=== PATIENT | female | born 1970 | race Caucasian/White ===

== ENCOUNTER 2020-08-18 05:59 | Day surgery (SDC) | payer BC ==
[2020-08-17 11:37] VITALS: BMI 23.6
[2020-08-18] MEDS ORDERED: Fentanyl 250 MCG/5 ML VIAL ONE (06:52)
[2020-08-18] MEDS ORDERED: Midazolam HCl 2 mg/2 ml Vial ONE (07:06)
[2020-08-18] MEDS ORDERED: Meperidine HCl/PF 25 MG/ML VIAL SLOW IVP PRN (07:12)
[2020-08-18] MEDS ORDERED: Ondansetron HCl/PF 4 MG/2 ML Vial IVP PRN (07:12)
[2020-08-18] MEDS ORDERED: Promethazine HCl 25 MG/ML VIAL SLOW IVP PRN (07:12)
[2020-08-18] MEDS ORDERED: Promethazine HCl 25 MG/ML VIAL IM PRN (07:12)
[2020-08-18] MEDS ORDERED: Scopolamine 1.5 mg/72 hour Patch ONE (07:13)
[2020-08-18] MEDS ORDERED: SUGAMMADEX SODIUM 200 MG/2 ML VIAL ONE (08:44)
--- NOTE | 2020-08-18 08:47 | OP ---
DATE OF PROCEDURE: 08/18/2020 SUBSTANCE ABUSE CLINICIAN: Bryan. PROCEDURES PERFORMED: Right L5-S1 laminectomy, facetectomy, foraminotomy, and diskectomy; interbody arthrodesis; intervertebral biomechanical device; local morselized autograft; demineralized bone matrix; posterolateral arthrodesis; pedicle screw instrumentation, right L5-S1. DESCRIPTION OF PROCEDURE: The patient was brought to the operating room and intubated. She was rolled in a prone position on gel-filled chest rolls. An incision was made exposing L5 and S1. The level was confirmed by x-ray. We performed a right L5-S1 laminectomy, facetectomy, foraminotomy, and diskectomy, completely decompressing right S1. There was a bulging disk herniation. After the disk had been debrided, the bony endplates were decorticated for the purpose of arthrodesis and appropriate-sized intervertebral biomechanical PEEK device was brought into the field. It was filled with demineralized bone matrix and local morselized autograft, and tapped into place securely at L5-S1. Next, pedicle screws were placed at right L5 and right S1 using lateral fluoroscopic guidance. This position was confirmed by x-ray. Gene was secured between the screws, connected by nuts, which were final tightened. The wound was then extensively irrigated. MAC hemostasis was secured. A combination of demineralized bone matrix and local morselized autograft was laid over the left lamina and posterolateral surfaces for the purpose of arthrodesis. Vancomycin powder was applied and the wound was then closed in anatomic layers. Job ID: [id number]
[2020-08-18] MEDS ORDERED: Fentanyl 100 MCG/2 ML VIAL ONE ×3 (09:07→09:54)
[2020-08-18] MEDS ORDERED: Meperidine HCl/PF 25 MG/ML VIAL ONE (10:39)
[2020-08-18] MEDS ORDERED: tiZANidine HCl 4 MG TAB ONE (11:04)
[2020-08-18] MEDS ORDERED: Ondansetron PF 4 MG/2 ML Vial ONE ×2 (12:05→12:19)
[2020-08-18] MEDS ORDERED: ePHEDrine 50 MG/ML VIAL ONE (12:19)
[2020-08-18] MEDS ORDERED: PHENYLEPHRINE-NS 100 MCG/ML 10 ML SYRINGE ONE (12:19)
[2020-08-18] MEDS ORDERED: Lidocaine 1% PF 5 ML VIAL ONE (12:19)
[2020-08-18] MEDS ORDERED: PROPOFOL 200 MG/20 ML VIAL ONE (12:19)
[2020-08-18] MEDS ORDERED: Dexamethasone 20 MG/5 ML VIAL ONE (12:19)
[2020-08-18] MEDS ORDERED: Rocuronium Bromide 10 MG/ML (10ML VIAL) ONE (12:19)
--- NOTE | 2020-08-18 12:41 | EKG ---
Test Reason : PREOP Blood Pressure : / mmHG Vent. Rate : 069 BPM Atrial Rate : 069 BPM P-R Int : 158 ms QRS Dur : 082 ms QT Int : 408 ms P-R-T Axes : 069 040 037 degrees QTc Int : 437 ms Normal sinus rhythm Normal ECG Confirmed by DR. Debbie ARIAS ([id number]) on 08/18/2020 12:40:59 PM Referred By: SAMMY Confirmed By:DR. Debbie ARIAS
[2020-08-18] MEDS ORDERED: HYDROcodone/Acetaminophen 5/325 mg Tablet ONE (13:06)
== END 2020-08-18 15:55 | disposition home or self-care (01) ==
LOC: SDC 05:59
PROVIDERS: ATTEND Neurological Surgery
PROC: 0SG3071 Fusion of Lumbosacral Joint with Autologous Tissue Substitute, Posterior Approach, Posterior Column, Open Approach (ICD-10-PCS; principal; 2020-08-18)
PROC: 0ST20ZZ Resection of Lumbar Vertebral Disc, Open Approach (ICD-10-PCS; principal; 2020-08-18)
DX: M54.16 Radiculopathy, lumbar region (principal); F32.9 Major depressive disorder, single episode, unspecified; F41.9 Anxiety disorder, unspecified; Z88.5 Allergy status to narcotic agent
CPT/HCPCS: 76000; 93005; 93010; C1713; C1768; J0690; J1100; J1644; J2175; J2250; J2405; J2704; J3010; J3370; J3490